=== PATIENT | female | born 1965 | race Caucasian/White ===

== ENCOUNTER 2021-03-09 21:25 | Emergency (ER) | payer OTHER ==
[~2021-03-09] VITALS: Ht 165.1 cm; Wt 81.7 kg
[~2021-03-09 21:25] MED LIST: Cyclobenzaprine5 MG PO; HYDR1TAB94 PO; Percocet 5-3251 EACH PO
[2021-03-10] MEDS ORDERED: Vibramycin100 MG PO (00:36)
== END 2021-03-10 00:53 | disposition home or self-care (01) ==
LOC: ER 21:25
DX: S61.452A Open bite of left hand, initial encounter (principal); S61.451A Open bite of right hand, initial encounter; S61.210A Laceration without foreign body of right index finger without damage to nail, initial encounter; S80.212A Abrasion, left knee, initial encounter; S80.211A Abrasion, right knee, initial encounter; S80.812A Abrasion, left lower leg, initial encounter; S80.811A Abrasion, right lower leg, initial encounter; Z88.0 Allergy status to penicillin; Z23 Encounter for immunization; W54.0XXA Bitten by dog, initial encounter
CPT/HCPCS: 12001; 73130; 90471; 90714; 99283-25; A9270